=== PATIENT | female | born 1960 | race Hispanic/Latino ===

== ENCOUNTER 2023-05-06 11:07 | Inpatient (IN) | payer OTHER ==
[2023-05-06] MEDS ORDERED: ONDANSETRON 4 MG/2 ML VIAL ONE ×2 (11:55→18:51)
[2023-05-06] MEDS ORDERED: NA CHLORIDE 0.9% 1,000 ML ONE ×2 (11:55→18:52)
[2023-05-06 12:11] LABS: Absolute Lymphocytes (CBC) 0.5 K/uL (0.7-4.9); Hematocrit 44.1 % (36.0-45.0); MCV 88.5 fL (80-100); MPV 7.5 fL (7.6-11.3); Platelets 340 thou/uL (152-406); RBC Red Blood Cell Count 4.98 M/uL (3.86-4.86)
[2023-05-06] MEDS ORDERED: HYDROMORPHONE HCL 1 MG/ML INJ ONE (12:16)
--- NOTE | 2023-05-06 12:19 | RAD REPORT ---
EXAM DESCRIPTION: Zuri Single View05/06/2023 12:05 pm CLINICAL HISTORY: Sepsis COMPARISON: 2016 FINDINGS: Lung bases are mildly hazy Upper lobes appear clear. Heart is normal size IMPRESSION: Lung bases are mildly hazy probably secondary to overlying soft tissue. As infiltrate ca n have this appearance PA and lateral chest series recommended
[2023-05-06 12:23] LABS: Protime INR 1.05
[2023-05-06 12:33] LABS: SARS-CoV-2 Antigen Rapid Res Negative (Negative)
[2023-05-06 12:37] LABS: Albumin 3.5 g/dL (3.4-5.0); Bilirubin Total 0.7 mg/dL (0.2-1.0); Protein, Total 7.3 g/dL (6.4-8.2)
[2023-05-06 12:39] LABS: Potassium 3.8 mEq/L (3.5-5.1)
[2023-05-06 13:01] LABS: Troponin High Sensitivity 4.3 pg/mL (<58.9)
[2023-05-06 13:07] LABS: Blood Morphology Comment NOT SEEN (NOT SEEN); Platelet Estimate ADEQ; White Blood Cell Scan OK (OK)
--- NOTE | 2023-05-06 13:49 | ER ---
Nurse's Notes [facility] Name: Connie Webber Age: 63 yrs Sex: Female : 1960 Arrival Date: 05/06/2023 Time: 11:07 Bed 5 Private MD: Diagnosis: Dehydration, sepsis, influenza B Presentation: 05/06 11:28 Chief complaint: Patient states: i have been vomiting all night and this morning. The kd3 pain started yesterday and has been getting worse since then. It starters in the lower abdomen and then goes up into the upper abdominal pain and moves around the left side. Coronavirus screen: Vaccine status: Patient reports receiving the 2nd dose of the covid vaccine. Ebola Screen: No symptoms or risks identified at this time. Initial Sepsis Screen: Does the patient meet any 2 criteria? RR > 20 per min. HR > 90 bpm. Yes Does the patient have a suspected source of infection?. Risk Assessment: Do you want to hurt yourself or someone else? Patient reports no desire to harm self or others. Onset of symptoms was May 06, 2023. 11:28 Method Of Arrival: Wheelchair kd3 11:28 Acuity: SARAH 3 kd3 Triage Assessment: 11:32 General: Appears uncomfortable, Behavior is calm, cooperative. Pain: Complains of pain kd3 in abdomen. GI: Abdomen is obese. Historical: - Allergies: 11:31 PENICILLINS; kd3 - Home Meds: 11:31 Metoprolol Tartrate Oral [Active]; kd3 - PMHx: 11:31 breast cancer; Hypertensive disorder; kd3 - PSHx: 11:31 Cholecystectomy; kd3 - Immunization history:: Adult Immunizations up to date. - Social history:: Smoking status: Patient denies any tobacco usage or history of. Screenin:36 [facility] ED Fall Risk Assessment (Adult) History of falling in the last 3 months, ph including since admission No falls in past 3 months (0 pts) Score/Fall Risk Level 0 - 2 = Low Risk Oriented to surroundings, Maintained a safe environment, Hourly rounding (assess needs \T\ fall precautionary measures) done, Used ambulatory aids as needed (educated on \T\ assisted with). Abuse screen: Denies threats or abuse. Denies injuries from another. Nutritional screening: No deficits noted. Tuberculosis screening: No symptoms or risk factors identified. Assessment: 11:38 Reassessment: code sepsis called overhead. ph 12:38 Reassessment: Patient appears in no apparent distress at this time. No changes from kc6 previously documented assessment. Patient and/or family updated on plan of care and expected duration. Pain level reassessed. Patient is alert, oriented x 3, equal unlabored respirations, skin warm/dry/pink. 13:42 Reassessment: phlebotomy at bedside unable to obtain blood cultures at this time as pt kc6 is a very difficult stick. Dr. Ceron notified. 13:48 Reassessment: Patient appears in no apparent distress at this time. No changes from kc6 previously documented assessment. Patient and/or family updated on plan of care and expected duration. Pain level reassessed. Patient is alert, oriented x 3, equal unlabored respirations, skin warm/dry/pink. 14:38 Reassessment: Patient appears in no apparent distress at this time. No changes from kc6 previously documented assessment. Patient and/or family updated on plan of care and expected duration. Pain level reassessed. Patient is alert, oriented x 3, equal unlabored respirations, skin warm/dry/pink. please see [facility] for further charting. 19:25 General: Appears comfortable, Behavior is calm, cooperative. Pain: Complains of pain in ha1 abdomen Pain does not radiate. Pain currently is 3 out of 10 on a pain scale. Neuro: Level of Consciousness is awake, alert, obeys commands, Oriented to person, place, time, situation. Cardiovascular: Patient's skin is warm and dry. Respiratory: Airway is patent Respiratory effort is even, unlabored, Respiratory pattern is regular, symmetrical. GI: Abdomen is round non-distended, Bowel sounds present X 4 quads. Abd is soft and non tender X 4 quads. 20:25 Reassessment: Patient and/or family updated on plan of care and expected duration. Pain ha1 level reassessed. Patient is alert, oriented x 3, equal unlabored respirations, skin warm/dry/pink. 20:30 Reassessment: attempted to give report. ha1 21:00 Reassessment: attempted to give report. ha1 21:16 Reassessment: report given to KOJO Gao. ha1 22:00 Reassessment: Patient and/or family updated on plan of care and expected duration. Pain ha1 level reassessed. Patient is alert, oriented x 3, equal unlabored respirations, skin warm/dry/pink. Vital Signs: 11:26 Pulse 123; Resp 21; Temp 99.3(O); Pulse Ox 97% on R/A; Weight 90.72 kg; Height 5 ft. 3 kd3 in. ; Pain 10/10; 11:30 BP 96 / 81; kd3 14:35 BP 136 / 85; Pulse 114; Resp 22; Pulse Ox 98% ; ph 15:21 BP 124 / 73; Pulse 114; Resp 20 S; Pulse Ox 100% on R/A; kc6 19:30 BP 123 / 72; Pulse 110; Resp 14 S; Pulse Ox 96% on R/A; ha1 20:30 BP 124 / 98; Pulse 108; Resp 14 S; Pulse Ox 96% on R/A; ha1 21:40 BP 102 / 54; Pulse 110; Resp 18 S; Pulse Ox 98% on R/A; ha1 11:26 Body Mass Index 35.43 (90.72 kg, 160.02 cm) kd3 11:26 Pain Scale: Adult kd3 ED Course: 11:13 Patient arrived in ED. mr 11:15 Ruiz Ceron MD is Attending Physician. sp3 11:26 Arm band placed on right wrist. kd3 11:30 Triage completed. kd3 11:35 Berenice José RN is Primary Nurse. ph 11:37 Patient has correct armband on for positive identification. Bed in low position. Call ph light in reach. Side rails up X2. 12:05 Inserted saline lock: 22 gauge in right hand, using aseptic technique. Blood collected. kc6 Patient maintains SpO2 saturation greater than 95% on room air. 12:07 Chest Single View XRAY In Process Unspecified. EDMS 12:46 Radiology exam delayed due to IV insertion attempt and/or patient not having ls3 appropriate IV at this time. 13:48 Nilo Amos MD is Hospitalizing Provider. sp3 13:57 Abdomen In Process Unspecified. EDMS 18:46 Radiology exam delayed due to IV insertion attempt and/or patient not having nj appropriate IV at this time. 19:00 Report given to Laura Erazo RN \T\ Shweta Arevalo RN. kc6 19:47 Primary Nurse role handed off by Berenice José RN 20:00 Radiology exam delayed due to IV insertion attempt and/or patient not having nj appropriate IV at this time. 20:36 Radiology exam delayed due to IV insertion attempt and/or patient not having nj appropriate IV at this time. 21:13 Radiology exam delayed due to IV insertion attempt and/or patient not having nj appropriate IV at this time. 22:29 No provider procedures requiring assistance completed. Patient admitted, IV remains in ha1 place. 22:30 Provided Education on: need for admit . ha1 Administered Medications: 11:57 Drug: NS 0.9% IV (30 ml/kg) 30 ml/kg IV at bolus once; Sepsis Protocol Route: IV; Rate: kc6 bolus; Site: right hand; 11:57 Drug: Ondansetron IVP 4 mg IVP once; over 2 minutes Route: IVP; Site: right hand; kc6 15:22 Follow up: Response: No adverse reaction; Nausea is decreased; Vomiting decreased kc6 12:05 Drug: HYDROmorphone IVP 1 mg IVP once Route: IVP; Site: right hand; kc6 15:22 Follow up: Response: No adverse reaction; Pain is decreased; RASS: Alert and Calm (0) kc6 Medication: 11:37 VIS not applicable for this client. ph Outcome: 13:49 Decision to Hospitalize by Provider. sp3 22:29 Admitted to Tele accompanied by tech, via stretcher, room 415, with chart, Report 1 called to KOJO Gao 22:29 Condition: stable 22:29 Discharge instructions given to patient, Instructed on the need for admit, Demonstrated understanding of instructions, 22:30 Patient left the ED. [facility] [place] Signatures: Dispatcher [employer] EDIL Florinda Metzger, Reg Reg mr Berenice José, RN Holden Gonzalez ph, Lynzie 3 Jie Laura Ruiz Ceron MD MD sp3 Angie Ventura RN RN kd3 Laura Erazo RN RN ha1 Tierney Milian RN RN kc6 Corrections: (The following items were deleted from the chart) 19:13 14:38 Reassessment: Patient appears in no apparent distress at this time. No changes kc6 from previously documented assessment. Patient and/or family updated on plan of care and expected duration. Pain level reassessed. Patient is alert, oriented x 3, equal unlabored respirations, skin warm/dry/pink. kc6 20:33 19:30 BP 124 / 98; Pulse 108bpm; Resp 14bpm; Spontaneous; Pulse Ox 96% RA; ha1 ha1
--- NOTE | 2023-05-06 13:49 | EDPHYS ---
Physician Documentation [facility] Name: Connie Webber Age: 63 yrs Sex: Female : 1960 Arrival Date: 05/06/2023 Time: 11:07 Bed 5 Private MD: ED Physician Ruiz Ceron HPI: 05/06 12:15 63-year-old female with a history of breast cancer status post bilateral mastectomy, sp3 hypertension, gastritis now presents to the ED with chief complaint diffuse abdominal pain for several days. She also states she has had emesis yesterday evening with 3-4 episodes since then without blood or mucus. She denies lower abdominal pain she denies fever, chest pain, shortness of breath, back pain, URI symptoms, syncope, near syncope, known sick contacts, travel history, weight loss, or any other signs or symptoms on ROS at this time. No significant abdominal surgery history noted.. Historical: - Allergies: 11:31 PENICILLINS; kd3 - Home Meds: 11:31 Metoprolol Tartrate Oral [Active]; kd3 - PMHx: 11:31 breast cancer; Hypertensive disorder; kd3 - PSHx: 11:31 Cholecystectomy; kd3 - Immunization history:: Adult Immunizations up to date. - Social history:: Smoking status: Patient denies any tobacco usage or history of. ROS: 12:18 Constitutional: Negative for fever, chills, and weight loss, Eyes: Negative for injury, sp3 pain, redness, and discharge, ENT: Negative for injury, pain, and discharge, Neck: Negative for injury, pain, and swelling, Cardiovascular: Negative for chest pain, palpitations, and edema, Respiratory: Negative for shortness of breath, cough, wheezing, and pleuritic chest pain, Back: Negative for injury and pain, MS/Extremity: Negative for injury and deformity, Skin: Negative for injury, rash, and discoloration, Neuro: Negative for headache, weakness, numbness, tingling, and seizure, Psych: Negative for depression, anxiety, suicide ideation, homicidal ideation, and hallucinations, Allergy/Immunology: Negative for hives, rash, and allergies, Endocrine: Negative for neck swelling, polydipsia, polyuria, polyphagia, and marked weight changes, Hematologic/Lymphatic: Negative for swollen nodes, abnormal bleeding, and unusual bruising, 12:18 All other systems are negative, Exam: 12:18 Constitutional: This is a well developed, well nourished patient who is awake, alert, sp3 and in no acute distress. Head/Face: Normocephalic, atraumatic. Eyes: Pupils equal round and reactive to light, extra-ocular motions intact. Lids and lashes normal. Conjunctiva and sclera are non-icteric and not injected. Cornea within normal limits. Periorbital areas with no swelling, redness, or edema. ENT: Nares patent. No nasal discharge, no septal abnormalities noted. External auditory canals are clear. Oropharynx with no redness, swelling, or masses, exudates, or evidence of obstruction, uvula midline. Mucous membranes moist. Neck: Trachea midline, no thyromegaly or masses palpated, and no cervical lymphadenopathy. Supple, full range of motion without nuchal rigidity, or vertebral point tenderness. No Meningismus. Chest/axilla: Normal chest wall appearance and motion. Nontender with no deformity. No lesions are appreciated. Respiratory: Lungs have equal breath sounds bilaterally, clear to auscultation and percussion. No rales, rhonchi or wheezes noted. No increased work of breathing, no retractions or nasal flaring. Back: No spinal tenderness. No costovertebral tenderness. Full range of motion. Skin: Warm, dry with normal turgor. Normal color with no rashes, no lesions, and no evidence of cellulitis. MS/ Extremity: Pulses equal, no cyanosis. Neurovascular intact. Full, normal range of motion. Neuro: Awake and alert, GCS 15, oriented to person, place, time, and situation. Cranial nerves II-XII grossly intact. Motor strength 5/5 in all extremities. Sensory grossly intact. Cerebellar exam normal. Normal gait. Psych: Awake, alert, with orientation to person, place and time. Behavior, mood, and affect are within normal limits. 12:18 Cardiovascular: Rate: tachycardic, 12:18 ECG was reviewed by the Attending Physician. EKG demonstrates sinus tachycardia at 117 bpm with normal intervals, S wave in lead I isolated Q wave in lead III and nonspecific diffuse ST/T changes without evidence of acute ischemia. Vital Signs: 11:26 Pulse 123; Resp 21; Temp 99.3(O); Pulse Ox 97% on R/A; Weight 90.72 kg; Height 5 ft. 3 kd3 in. ; Pain 10/10; 11:30 BP 96 / 81; kd3 14:35 BP 136 / 85; Pulse 114; Resp 22; Pulse Ox 98% ; ph 15:21 BP 124 / 73; Pulse 114; Resp 20 S; Pulse Ox 100% on R/A; kc6 19:30 BP 123 / 72; Pulse 110; Resp 14 S; Pulse Ox 96% on R/A; ha1 20:30 BP 124 / 98; Pulse 108; Resp 14 S; Pulse Ox 96% on R/A; ha1 21:40 BP 102 / 54; Pulse 110; Resp 18 S; Pulse Ox 98% on R/A; ha1 11:26 Body Mass Index 35.43 (90.72 kg, 160.02 cm) kd3 11:26 Pain Scale: Adult kd3 MDM: 11:38 Patient medically screened. sp3 12:21 Data reviewed: vital signs, nurses notes, lab test result(s), EKG, radiologic studies. sp3 ED course: 63-year-old female with prior cancer history now with epigastric pain, abdominal pain, vomiting and abnormal EKG. Although EKG is not traditional S1 every 3 T3 in terms of magnitude of the QRS, her past medical history puts her at a moderate risk at minimum for pulmonary embolism. Differential includes gastroenteritis, viral syndrome, acute coronary syndrome, pulmonary embolism, recurrence of cancer, among others. I am not highly suspicious for aortic pathology including aneurysm or dissection, mesenteric ischemia, pathology, LOADER TECHNICIAN pathology or other critical process. Work-up will include CT scan of the chest PE protocol with runoffs to the abdomen and pelvis, laboratory values, EKG, 30 mL/kg IV fluid bolus and symptomatic nausea and pain control. Disposition pending work-up and patient course.. 11 11:39 Order name: Blood Culture Adult (2) sp3 05/06 11:39 Order name: CBC with Diff; Complete Time: 13:23 sp3 05/06 11:39 Order name: CMP; Complete Time: 13:04 sp3 05/06 11:39 Order name: Lactate w/ 2H reflex if indic.; Complete Time: 13:04 sp3 05/06 11:39 Order name: Protime (+inr); Complete Time: 13:04 sp3 05/06 11:39 Order name: Ptt, Activated; Complete Time: 13:04 sp3 05/06 11:39 Order name: Urinalysis w/ reflexes sp3 05/06 11:39 Order name: SARS RAPID; Complete Time: 13:04 sp3 05/06 11:39 Order name: Flu; Complete Time: 13:04 sp3 05/06 12:24 Order name: Troponin High Sensitivity; Complete Time: 13:04 sp3 05/06 12:24 Order name: Lipase; Complete Time: 13:04 sp3 05/06 13:07 Order name: CBC Smear Scan; Complete Time: 13:23 EDMS 05/06 15:13 Order name: T4 Free EDMS 05/06 15:13 Order name: Thyroid Stimulating Hormone EDMS 05/06 15:13 Order name: Urinalysis w/ reflexes EDMS 05/06 15:13 Order name: CBC with Automated Diff EDMS 05/06 15:13 Order name: CBC with Automated Diff EDMS 05/06 15:13 Order name: CBC with Automated Diff EDMS 05/06 15:13 Order name: CBC with Automated Diff EDMS 05/06 15:13 Order name: Comprehensive Metabolic Panel EDMS 05/06 15:13 Order name: Comprehensive Metabolic Panel EDMS 05/06 15:13 Order name: Comprehensive Metabolic Panel EDMS 05/06 15:13 Order name: Comprehensive Metabolic Panel EDMS 05/06 15:13 Order name: Lipid Profile EDMS 05/06 15:13 Order name: Lipid Profile EDMS 05/06 15:13 Order name: Magnesium EDMS 05/06 15:13 Order name: Magnesium EDMS 05/06 15:13 Order name: Magnesium EDMS 05/06 15:13 Order name: Magnesium EDMS 05/06 15:13 Order name: Phosphorus EDMS 05/06 15:13 Order name: Phosphorus EDMS 05/06 15:13 Order name: Phosphorus EDMS 05/06 15:13 Order name: Phosphorus EDMS 05/06 15:15 Order name: Urinalysis w/ reflexes EDMS 05/06 15:32 Order name: Lactate Sepsis 2 HR Follow-up EDMS 05/06 11:39 Order name: Chest Single View XRAY; Complete Time: 13:04 sp3 05/06 12:21 Order name: CT Chest For PE Angio sp3 05/06 13:49 Order name: Abdomen EDMS 05/06 11:39 Order name: EKG; Complete Time: 11:39 sp3 05/06 11:39 Order name: Accucheck; Complete Time: 12:02 sp3 05/06 11:39 Order name: Cardiac monitoring; Complete Time: 12:12 sp3 05/06 11:39 Order name: EKG - Nurse/Tech; Complete Time: 12:12 sp3 05/06 11:39 Order name: IV Saline Lock - Large Bore; Complete Time: 12:02 sp3 05/06 11:39 Order name: Labs collected and sent; Complete Time: 12:02 sp3 05/06 11:39 Order name: O2 Per Protocol; Complete Time: 11:57 sp3 05/06 11:39 Order name: O2 Sat Monitoring; Complete Time: 11:57 sp3 05/06 11:39 Order name: Vital Signs; Complete Time: 11:57 sp3 Administered Medications: 11:57 Drug: NS 0.9% IV (30 ml/kg) 30 ml/kg IV at bolus once; Sepsis Protocol Route: IV; Rate: kc6 bolus; Site: right hand; 11:57 Drug: Ondansetron IVP 4 mg IVP once; over 2 minutes Route: IVP; Site: right hand; kc6 15:22 Follow up: Response: No adverse reaction; Nausea is decreased; Vomiting decreased kc6 12:05 Drug: HYDROmorphone IVP 1 mg IVP once Route: IVP; Site: right hand; kc6 15:22 Follow up: Response: No adverse reaction; Pain is decreased; RASS: Alert and Calm (0) kc6 Disposition Summary: 05/06/23 13:49 Hospitalization Ordered Notes: Hospitalization Status: Inpatient Admission sp3 Provider: Nilo Amos sp3 [facility] sp3 Condition: Stable sp3 Problem: new sp3 Symptoms: have worsened sp3 Bed/Room Type: Standard sp3 Room Assignment: 415(05/06/23 19:28) cg Diagnosis - Dehydration, sepsis, influenza B sp3 Forms: - Medication Reconciliation Form sp3 - SBAR form sp3 - Leadership Thank You Letter sp3 Signatures: Dispatcher [employer] EDGA Bandar Zhu, PIER HAND HELPER-C PIER HAND HELPER-Cla1 Aziza Teresa, RN RN cg Ruiz Ceron MD MD sp3 Angie Ventura RN RN kd3 Tierney Milian RN RN kc6 Corrections: (The following items were deleted from the chart) 13:49 11:40 Abdomen Pelvis W Con+CT.RAD.BRZ ordered. EDMS EDMS 19:28 13:49 sp3 cg
--- NOTE | 2023-05-06 14:39 | RAD REPORT ---
EXAM DESCRIPTION: CT - Abdomen Pelvis Wo Contrast - 05/06/2023 1:55 pm CLINICAL HISTORY: ABD PAIN COMPARISON: No comparisons TECHNIQUE: Thin cut axial CT imaging of the abdomen and pelvis was performed without IV contrast. Mu ltiplanar reformats were generated and reviewed. All CT scans are performed using dose optimization technique as appropriate and may include automated exposure control or mA/KV adjustment according to patient size. FINDINGS: Moderate sliding hiatal hernia. No suspicious findings in the lung bases. The liver shows diffuse parenchymal hypoattenuation suggesting steatosis. Spleen, adrenal glands, and pancreas show no suspicious findings. Gallbladder was surgically removed. Symmetric renal contour, without suspicious parenchymal findings within limits of noncontrast techniq ue. No evidence of radiopaque calculi or hydroureteronephrosis. Mildly prominent proximal jejunal small bowel loops with short-segment air-fluid levels and progressi ve tapering towards nondistended central abdominal small bowel. Appendix is unremarkable. No bowel wa ll thickening. No free air, free fluid or inflammatory stranding. No hernia, mass or bulky lymphadeno jessie. The urinary bladder is without significant finding. No suspicious bony findings. IMPRESSION: Mildly prominent proximal jejunal small bowel loops with short-segment air-fluid levels. No evidence of obstruction. Findings suggest early ileus or enteritis. Moderate sliding hiatal hernia. Diffuse hepatic steatosis.
[2023-05-06] MEDS ORDERED: ACETAMINOPHEN 500 MG TAB PO PRN (15:07)
[2023-05-06] MEDS ORDERED: ALBUTEROL 2.5 MG/3 ML NEB SOL NEB PRN (15:07)
--- NOTE | 2023-05-06 15:24 | P.HP ---
Certification for Inpatient With expected LOS: <2 Midnights Patient will require the following post-hospital care: None Practitioner: I am a practitioner with admitting privileges, knowledge of patient current condition, hospital course, and medical plan of care. Services: Services provided to patient in accordance with Admission requirements found in Title 42 Section 412.3 of the Code of Federal Regulations Patient History Date of Service: 05/06/23 Reason for admission: Abdominal pain, vomiting History of Present Illness: Ms. Ling 63-year-old female with a history of breast cancer status post bilateral mastectomy, hypertension, gastritis presented to the ER with the chief complaints of diffuse abdominal pain for several days. She reports that her pain got worse last night, she also vomited 3-4 times in the evening patient denies chest pain, shortness of breath, chest discomfort. Patient denies fever, chills upper respiratory symptoms. ED course Vital signs blood pressure 96/81, pulse 123, breathing 21, temperature 99.3, pulse ox 97%, on room air. EKG showing sinus tachycardia. Laboratory findings significant for elevated lactic acid 3.8. CBC and electrolytes are nonsignificant. CT abdomen shows mildly prominent proximal jejunal small bowel loops with short segment air-filled levels. No evidence of obstruction, findings suggest early ileus or enteritis. Patient reports abdominal pain 5/10 now. Admitting the patient with a diagnosis of lactic acidosis, sepsis, and dehydration. Allergies No Known Allergies Allergy (Unverified 05/06/23 15:21) Home medications list reviewed: Yes - Past Medical/Surgical History Diabetic: No -: Breast cancer post bilateral mastectomy 2019 -: Hypertension -: Gastritis -: Bilateral mastectomy 2019 Psychosocial/ Personal History: Patient lives with her family - Social History Smoking Status: Former smoker Alcohol use: Yes CD- Drugs: No Caffeine use: Yes Place of Residence: Home Review of Systems 10-point ROS is otherwise unremarkable Physical Examination - Physical Exam General: Alert, Oriented x3 HEENT: Atraumatic, Normocephalic, PERRLA Neck: Supple, 2+ carotid pulse no bruit Respiratory: Clear to auscultation bilaterally, Normal air movement Cardiovascular: No edema, Normal pulses, Normal S1 S2 Capillary refill: <2 Seconds Gastrointestinal: Normal bowel sounds, Hypoactive, Soft and benign, Distended Musculoskeletal: No clubbing, No swelling, No contractures Integumentary: No rashes, No breakdown, No significant lesion Neurological: Normal speech, Normal tone, Sensation intact - Studies Laboratory Data (last 24 hrs) 05/06/23 05/06/23 05/06/23 11:58 11:58 11:58 WBC Hgb Hct Plt Count PT 11.5 INR 1.05 APTT 27.8 Sodium 136 Potassium 3.8 BUN 17 Creatinine 0.88 Glucose 190 H Total Bilirubin 0.7 AST 44 H ALT 47 Alkaline Phosphatase 131 H Lipase 56 05/06/23 11:58 WBC 8.80 Hgb 15.1 H Hct 44.1 Plt Count 340 PT INR APTT Sodium Potassium BUN Creatinine Glucose Total Bilirubin AST ALT Alkaline Phosphatase Lipase Microbiology Data (last 24 hrs): 05/06/23 11:58 Nasopharnyx Influenza Type A Antigen Screen - Final 05/06/23 11:58 Nasopharnyx Influenza Type B Antigen Screen - Final Assessment and Plan - Problems (Diagnosis) (1) Gastritis Current Visit: Yes Status: Chronic Plan: Chronic worsening complaining of epigastric abdominal pain for few days got worse last night, reports of nausea vomiting x3 episodes last night Admitting the patient IV hydration PPI Pain management IV antibiotic Metrogyl and levofloxacin We will continue to monitor CT scan abdomen 05/06/2023 reviewed Qualifiers: Gastritis type: other gastritis Chronicity: chronic (2) Nausea & vomiting Current Visit: Yes Status: Acute Plan: Acute, reports 3 episodes vomiting last night Zofran as needed IV hydration Continue to monitor Qualifiers: Vomiting type: projectile vomiting Qualified Code(s): R11.12 - Projectile vomiting (3) Hypertension Current Visit: Yes Status: Acute Plan: Chronic controlled on metoprolol We will monitor the blood pressure Qualifiers: Hypertension type: primary hypertension Qualified Code(s): I10 - Essential (primary) hypertension (4) Sepsis Current Visit: Yes Status: Acute Plan: Acute, patient came in with abdominal pain mostly epigastric for several days got worse last night Patient meet SIRS criteria as patient's heart rate is 1 1 8/min temperature 99.3 lactic acid 3.8 IV hydration started patient denies shortness of breath or chest discomfort Patient's blood pressure on the lower 96 We will continue to closely monitor vital signs Trend lactic acid IV antibiotics metronidazole and levofloxacin Qualifiers: Sepsis type: sepsis due to unspecified organism Sepsis acute organ dysfunction status: without acute organ dysfunction Qualified Code(s): A41.9 - Sepsis, unspecified organism (5) Dehydration Current Visit: Yes Status: Acute Plan: Acute, abdominal pain nausea vomiting Patient received NS 500 mL IV bolus in the ER IV hydration started We will continue to monitor the patient Discharge Plan: Home Plan to discharge in: 48 Hours - Advance Directives Does patient have a Living Will: No Does patient have a Durable POA for Healthcare: No - Code Status/Comfort Care Code Status Assessed: Yes (Full code) Code Status: Full Code Critical Care: No Time Spent Managing Pts Care (In Minutes): 55 (Minutes)
[2023-05-06] MEDS ORDERED: SODIUM CHLORIDE 0.9% 10ML INJ IV PRN (15:50)
[2023-05-06] MEDS: METRONIDAZOLE 500mg IVPB 500 MG/100 ML BAG IV SCH ×2 (16:00→23:15)
[2023-05-06] MEDS: ENOXAPARIN 40 MG/0.4 ML SQ SCH (16:00)
[2023-05-06] MEDS: Levofloxacin 750mg IV 750 MG/150 ML BAG IV SCH (16:00)
[2023-05-06] MEDS: NA CHLORIDE 0.9% 1,000 ML IV SCH ×2 (16:00→23:15)
[2023-05-06] MEDS ORDERED: ENOXAPARIN 40 MG/0.4 ML SQ ONE (18:51)
[2023-05-06] MEDS ORDERED: MORPHINE 2 MG/ML SYR ONE (18:51)
[2023-05-06] MEDS ORDERED: Levofloxacin 750mg IV 750 MG/150 ML BAG IV ONE (18:52)
[2023-05-06] MEDS ORDERED: METRONIDAZOLE 500mg IVPB 500 MG/100 ML BAG IV ONE (18:52)
[2023-05-06 19:10] LABS: Specific Gravity 1.025 (1.005-1.030); Urine Bilirubin NEGATIVE (Negative); Urine Blood Negative (Negative); Urine Clarity Clear (Clear); Urine Color Light-Yellow (Yellow); Urine Glucose TRACE (Negative); Urine Protein NEGATIVE (Negative); Urine Urobilinogen Normal (Normal)
[2023-05-06] MEDS: MORPHINE 2 MG/ML SYR IV PRN ×2 (19:22→23:09)
[2023-05-06] MEDS: ONDANSETRON 4 MG/2 ML VIAL IV PRN (19:23)
[2023-05-06 20:40] LABS: Thyroid Stimulating Hormone 1.07 uIU/mL (0.358-3.740)
[2023-05-06] MEDS: PANTOPRAZOLE 40 MG INJ IVP SCH (23:13)
[2023-05-07 00:31] VITALS: BMI 35.4
[2023-05-07] MEDS: ONDANSETRON 4 MG/2 ML VIAL IV PRN (00:35)
[2023-05-07] MEDS: NA CHLORIDE 0.9% 1,000 ML IV SCH ×2 (02:00→15:50)
--- NOTE | 2023-05-07 06:44 | P.PN ---
Subjective Date of Service: 05/07/23 Chief Complaint: Abdominal pain, vomiting Subjective: No C/O voiced pain controlled with prn analgesics, Review of Systems 10-point ROS is otherwise unremarkable Physical Examination - Vital Signs Temperature: 97.2 F Blood Pressure: 110/68 Pulse: 106 Respirations: 18 Pulse Ox (%): 97 - Physical Exam General: Alert, In no apparent distress, Oriented x3, Obese HEENT: Atraumatic, Normocephalic, PERRLA Neck: Supple, 2+ carotid pulse no bruit Respiratory: Clear to auscultation bilaterally, Normal air movement Cardiovascular: No edema, Normal pulses, Regular rate/rhythm Capillary refill: <2 Seconds Gastrointestinal: Tenderness (lower abdominal tenderness, nausea) Musculoskeletal: No clubbing, No swelling Integumentary: No rashes, No breakdown Neurological: Normal speech, Normal strength at 5/5 x4 extr - Studies Laboratory Data (last 24 hrs) 05/06/23 05/06/23 05/06/23 11:58 11:58 11:58 WBC Hgb Hct Plt Count PT 11.5 INR 1.05 APTT 27.8 Sodium 136 Potassium 3.8 BUN 17 Creatinine 0.88 Glucose 190 H Total Bilirubin 0.7 AST 44 H ALT 47 Alkaline Phosphatase 131 H Lipase 56 05/06/23 11:58 WBC 8.80 Hgb 15.1 H Hct 44.1 Plt Count 340 PT INR APTT Sodium Potassium BUN Creatinine Glucose Total Bilirubin AST ALT Alkaline Phosphatase Lipase Microbiology Data (last 24 hrs): 05/06/23 11:58 Nasopharnyx Influenza Type A Antigen Screen - Final 05/06/23 11:58 Nasopharnyx Influenza Type B Antigen Screen - Final Assessment And Plan - Plan Assessment plan Sepsis secondary to enteritis" versus ileus acute IV Flagyl, Levaquin, CT abdomen shows mildly prominent proximal jejunal small bowel loops with short segment air-filled levels. No evidence of obstruction, findings suggest early ileus or enteritis. Patient reports abdominal pain 5/10 now. Abdominal pain with nausea vomiting acute GI consult, n.p.o., as needed analgesics, antiemetics Transaminitis likely secondary to steatosis History of abdominal hernia Essential hypertension Resume appropriate home meds Full code DVT Lovenox Diet n.p.o. Discharge Plan: Home Plan to discharge in: 48 Hours - Code Status/Comfort Care Code Status: Full Code Physician Review: Patient Assessed, Agree with Above Assessment and Plan Critical Care: No Time Spent Managing PTS Care (In Minutes): 35
[2023-05-07] MEDS: PANTOPRAZOLE 40 MG INJ IVP SCH ×2 (09:00→20:23)
[2023-05-07] MEDS ORDERED: ENOXAPARIN 40 MG/0.4 ML SQ SCH (09:00)
[2023-05-07] MEDS: ENOXAPARIN 40 MG/0.4 ML SQ SCH (09:00)
[2023-05-07] MEDS: HYDROMORPHONE HCL 1 MG/ML INJ IV PRN ×2 (09:22→20:23)
[2023-05-07] MEDS: METRONIDAZOLE 500mg IVPB 500 MG/100 ML BAG IV SCH ×2 (09:23→15:50)
[2023-05-07 11:44] LABS: Absolute Lymphocytes (CBC) 0.8 K/uL (0.7-4.9); Hematocrit 36.7 % (36.0-45.0); Lymphocytes % 20.6 % (15.3-44.8); MCV 89.9 fL (80-100); MPV 7.6 fL (7.6-11.3); Platelets 289 thou/uL (152-406); RBC Red Blood Cell Count 4.08 M/uL (3.86-4.86)
[2023-05-07 11:48] LABS: Protime INR 2.45
[2023-05-07 12:09] LABS: Albumin 2.9 g/dL (3.4-5.0); Bilirubin Direct 0.1 mg/dL (0-0.2); Bilirubin Indirect, Calculated 0.3 mg/dL (0.2-0.8); Bilirubin Total 0.4 mg/dL (0.2-1.0); Phosphorus 3.3 mg/dL (2.5-4.9); Protein, Total 6.1 g/dL (6.4-8.2)
[2023-05-07 12:11] LABS: Magnesium 2.2 mg/dL (1.6-2.4); Potassium 3.8 mEq/L (3.5-5.1)
--- NOTE | 2023-05-07 13:57 | RAD REPORT ---
EXAM DESCRIPTION: CT - Chest For Pe Angio - 05/07/2023 1:17 pm CLINICAL HISTORY: cancer pt; epigastric pain COMPARISON: No comparisons TECHNIQUE: Thin axial CT images of the chest were obtained following administration of 100 mL mL Iso tatyana 370 IV contrast. Multiplanar reconstructions, and maximum intensity projection reconstructions we re generated and reviewed. Exam utilizes a protocol for optimal evaluation of pulmonary arterial tree . All CT scans are performed using dose optimization technique as appropriate and may include automated exposure control or mA/KV adjustment according to patient size. FINDINGS: Pulmonary arteries are normal. No emboli or other suspicious finding. No acute or signific ant aorta findings. No mass or infiltrate in the lung parenchyma. No pleural thickening or pleural effusion. No pneumotho rax. No abnormal mediastinal or hilar masses or lymphadenopathy seen. No chest wall mass or abnormal axill iary lymphadenopathy. Moderate hiatal hernia. Diffuse hepatic parenchymal hypoattenuation suggesting steatosis. Bilateral b reast implants in place. IMPRESSION: No evidence of acute central pulmonary emboli. No other acute findings in the chest. Moderate hiatal hernia. Diffuse hepatic parenchymal hypoattenuation suggesting steatosis.
[2023-05-07] MEDS ORDERED: POTASSIUM 25 MEQ EFFERV TAB PO ONE (15:05)
[2023-05-07] MEDS: Levofloxacin 750mg IV 750 MG/150 ML BAG IV SCH (15:49)
[2023-05-08] MEDS: METRONIDAZOLE 500mg IVPB 500 MG/100 ML BAG IV SCH ×3 (00:41→16:02)
[2023-05-08] MEDS: NA CHLORIDE 0.9% 1,000 ML IV SCH ×4 (04:20→18:00)
[2023-05-08] MEDS: HYDROMORPHONE HCL 1 MG/ML INJ IV PRN ×2 (06:25→13:39)
[2023-05-08] MEDS: PANTOPRAZOLE 40 MG INJ IVP SCH ×2 (07:52→20:21)
[2023-05-08] MEDS: ENOXAPARIN 40 MG/0.4 ML SQ SCH (07:53)
[2023-05-08 08:30] LABS: Absolute Lymphocytes (CBC) 1.5 K/uL (0.7-4.9); Hematocrit 34.8 % (36.0-45.0); Lymphocytes % 30.5 % (15.3-44.8); MCV 88.9 fL (80-100); MPV 7.9 fL (7.6-11.3); Platelets 287 thou/uL (152-406); RBC Red Blood Cell Count 3.91 M/uL (3.86-4.86)
[2023-05-08 08:36] LABS: Protime INR 1.15
[2023-05-08 08:38] LABS: Albumin 2.9 g/dL (3.4-5.0); Bilirubin Total 0.3 mg/dL (0.2-1.0); Magnesium 2.2 mg/dL (1.6-2.4); Phosphorus 2.9 mg/dL (2.5-4.9); Potassium 3.4 mEq/L (3.5-5.1)
--- NOTE | 2023-05-08 09:11 | RAD REPORT ---
EXAM DESCRIPTION: RAD - Abdomen 1 View (KUB) - 05/08/2023 8:28 am CLINICAL HISTORY: evaluate ileus COMPARISON: Abdomen Pelvis Wo Contrast dated 05/06/2023 TECHNIQUE: Single AP view of the abdomen. FINDINGS: Nonobstructive bowel gas pattern. No air-fluid levels, free air, or pneumatosis. No suspic ious calcifications. No significant bony abnormality. IMPRESSION: Negative two view abdomen examination.
[2023-05-08] MEDS ORDERED: POTASSIUM CL SA 10 MEQ TAB PO ONE ×2 (09:49→17:20)
--- NOTE | 2023-05-08 10:02 | P.DS ---
Admission Date: 05/06/23 Discharge Date: 05/09/23 Disposition: ROUTINE DISCHARGE Discharge Condition: GOOD Reason for Admission: Abdominal pain, vomiting - Problems (1) Abdominal pain Current Visit: Yes Status: Acute (2) Nausea & vomiting Current Visit: Yes Status: Acute Qualifiers: Vomiting type: unspecified Qualified Code(s): R11.2 - Nausea with vomiting, unspecified Hospital Course: 63 year old female presented to the emergency room with Abdominal pain, nausea, vomiting, she was disanosed with possible early bowel ostruction, vs enteritis. She was treated with prn analgesics, Iv antibioitics, keep NPO until until bowel sounds improved. Plan to advance diet today. Discharge home when tolerating PO diet. Follow up with PCP in 7-10 days. Return to ER for worsening of symptoms. Vital Signs/Physical Exam: Temp Pulse Resp BP Pulse Ox 97.6 F 97 H 16 144/71 H 97 05/08/23 08:00 05/08/23 08:00 05/08/23 08:00 05/08/23 08:00 05/08/23 08:00 General: Alert, In no apparent distress, Oriented x3, Obese HEENT: Atraumatic, Normocephalic Neck: Supple, 2+ carotid pulse no bruit Respiratory: Clear to auscultation bilaterally, Normal air movement Cardiovascular: No edema, Normal pulses, Regular rate/rhythm Capillary refill: <2 Seconds Gastrointestinal: Normal bowel sounds, Soft and benign Musculoskeletal: No clubbing, No swelling Integumentary: No rashes, No breakdown Neurological: Normal speech, Normal strength at 5/5 x4 extr Laboratory Data at Discharge: WBC 5.10 thou/uL (4.3-10.9) 05/08/23 01:05 Hgb 11.7 g/dL (12.0-15.0) L 05/08/23 01:05 Hct 34.8 % (36.0-45.0) L 05/08/23 01:05 Plt Count 287 thou/uL (152-406) 05/08/23 01:05 PT 12.7 SECONDS (9.5-12.5) H 05/08/23 01:05 INR 1.15 05/08/23 01:05 APTT 27.8 SECONDS (24.3-36.9) 05/06/23 11:58 Sodium 141 mEq/L (136-145) 05/08/23 01:05 Potassium 3.4 mEq/L (3.5-5.1) L 05/08/23 01:05 BUN 6 mg/dL (7-18) L 05/08/23 01:05 Creatinine 0.66 mg/dL (0.55-1.02) 05/08/23 01:05 Glucose 81 mg/dL (74-106) 05/08/23 01:05 Phosphorus 2.9 mg/dL (2.5-4.9) 05/08/23 01:05 Magnesium 2.2 mg/dL (1.6-2.4) 05/08/23 01:05 Total Bilirubin 0.3 mg/dL (0.2-1.0) 05/08/23 01:05 AST 36 U/L (15-37) 05/08/23 01:05 ALT 39 U/L (13-56) 05/08/23 01:05 Alkaline Phosphatase 87 U/L (45-117) 05/08/23 01:05 Triglycerides 107 mg/dL (<150) 05/07/23 11:27 Cholesterol 161 mg/dL (<200) 05/07/23 11:27 HDL Cholesterol 42 mg/dL (40-60) 05/07/23 11:27 Cholesterol/HDL Ratio 3.83 05/07/23 11:27 Lipase 61 U/L (13-75) 05/07/23 11:27 Home Medications: Biotin 5,000 mcg PO DAILY 05/06/23 Cholecalciferol (Vitamin D3) [Vitamin D3] 125 mcg PO DAILY 05/06/23 Dexlansoprazole [Dexlansoprazole Dr] 60 mg PO DAILY 05/06/23 Fluoxetine HCl 20 mg PO DAILY 05/06/23 Folic Acid 800mcg 800 mcg PO DAILY 05/06/23 Letrozole [Femara*] 2.5 mg PO DAILY 05/06/23 Metoprolol Tartrate 50 mg PO DAILY 05/06/23 Rivaroxaban [Xarelto] 20 mg PO DAILY 05/06/23 Turmeric Root Extract [Turmeric] 1,000 mg PO DAILY 05/06/23 Vitamin B12 1,000 mcg PO DAILY 05/06/23 Zinc 50mg 50 mg PO DAILY 05/06/23 buPROPion HCL [Wellbutrin Xl] 150 mg PO DAILY 05/06/23 Physician Discharge Instructions: Discharge home, follow up with PCP in 7-10 days Diet clear liq diet diet, advance as tolerated activity was tolerated return to the emergency room for wosening of symptoms Take stool softeners as needed over the counter for constipation Diet: AHA Activity: Ad tata Followup: NONE,NONE [Primary Care Provider] - Time spent managing pt's care (in minutes): 50
[2023-05-08] MEDS ORDERED: POTASSIUM 25 MEQ EFFERV TAB PO ONE ×2 (10:24→10:52)
[2023-05-08] MEDS: ONDANSETRON 4 MG/2 ML VIAL IV PRN (12:42)
--- NOTE | 2023-05-08 14:14 | EKG ---
Test Date: 2023-05-06 Test Time: 13:15:30 Finishing Machine Operator: NGUYỄN MEASUREMENT RESULTS: Intervals: Rate: 117 NM: 176 QRSD: 82 QT: 328 QTc: 457 [place]: P: 35 NM: 176 QRS: 1 T: -1 INTERPRETIVE STATEMENTS: Sinus tachycardia Inferior infarct, age undetermined Anterior infarct, age undetermined Abnormal ECG Compared to ECG 12/22/2015 01:16:54 No significant changes Electronically Signed On 05-08-23 14:08:32 HAND I CUTTER by Amadeo Leong
[2023-05-08] MEDS: Levofloxacin 750mg IV 750 MG/150 ML BAG IV SCH (16:02)
--- NOTE | 2023-05-08 16:27 | P.PN ---
Subjective Date of Service: 05/08/23 Chief Complaint: Abdominal pain, vomiting Subjective: Improving pain controlled with prn analgesics, tolerating advance diet. reports passing flatus, reports nausea from PO potassium Review of Systems 10-point ROS is otherwise unremarkable Physical Examination - Vital Signs Temperature: 97.2 F Blood Pressure: 137/79 Pulse: 88 Respirations: 16 Pulse Ox (%): 94 - Physical Exam General: Alert, In no apparent distress, Oriented x3, Obese HEENT: Atraumatic, Normocephalic Neck: Supple, 2+ carotid pulse no bruit Respiratory: Clear to auscultation bilaterally, Normal air movement Cardiovascular: No edema, Normal pulses Capillary refill: <2 Seconds Gastrointestinal: Normal bowel sounds, Tenderness (mild lower abdominal tenderness) Musculoskeletal: No clubbing, No swelling Integumentary: No rashes, No breakdown Neurological: Normal speech, Normal strength at 5/5 x4 extr Assessment And Plan - Current Problems (Diagnosis) (1) Abdominal pain Current Visit: Yes Status: Acute (2) Nausea & vomiting Current Visit: Yes Status: Acute Qualifiers: Vomiting type: unspecified Qualified Code(s): R11.2 - Nausea with vomiting, unspecified - Plan Assessment plan Sepsis secondary to enteritis" versus ileus acute IV Flagyl, Levaquin, CT abdomen shows mildly prominent proximal jejunal small bowel loops with short segment air-filled levels. No evidence of obstruction, findings suggest early ileus or enteritis. advancing diet, reports passing flatus Abdominal pain with nausea vomiting acute GI consult, n.p.o., as needed analgesics, antiemetics Transaminitis likely secondary to steatosis History of abdominal hernia Essential hypertension Resume appropriate home meds Full code DVT Lovenox Diet full liquid. Physician Review: Patient Assessed, Agree with Above Assessment and Plan
--- NOTE | 2023-05-08 19:52 | CON ---
Date of Consultation: 05/08/2023 Reason For Consultation: Midepigastric greater than generalized abdominal pain with nausea, vomiting . History Of Present Illness: The patient came to the hospital with 24 hours of severe abdominal pain, began in the epigastrium radiating to generalized abdomen associated with nausea and vomiting. CT s can revealed inflammation of the jejunum with short segment of air from lungs in that region. The pa josiah denies any abnormal food, eating out, parties, and just all of a sudden pain happene d. States that she had been eating her food from home it appears, not going out. In the emergency r oom, she appeared dehydrated. There was a question in the emergency room of whether that she may hav e influenza B, but I do not have any verification of that from the chart. Past Medical History: Significant for hypertension; gastritis; breast cancer, status post bilateral mastectomy in 2019; and laparoscopic cholecystectomy in the past. Social History: , 4 children. No tobacco. She has occasional alcohol. Family History: Father of end-stage liver disease and he was not a heavy drinker. The etiology of his liver failure was not the daughter, the patient, or her brother who is present as well. Mother, history of hypertension . Review of Systems: The patient had midepigastric and diffuse abdominal pain with nausea, vomiting. She denies any sullivan e in bowel habits, diarrhea, constipation, melena, hematochezia, coffee-ground, hematuria, dysuria, p olydipsia, chest pain, shortness of breath, seizure, syncope, muscle aches, joint aches, backaches, d epression, anxiety. Physical Examination: Vital Signs: Patient is 5 feet 3 inches, 200 pounds, BMI of 35.4 kg/sq m. Temperature 97.3 degrees Fahrenheit, pulse 88, respirations 16, blood pressure 137/79, O2 saturation 94%. General: She is an obese female lying in bed, in no acute distress. HEENT: Normocephalic, atraumatic. Anicteric. Pupils equal, round, and reactive to light. Extraocu lar movements are intact. Oropharynx clear. Neck: Supple. No masses. Respirations: Clear to auscultation bilaterally. Cardiac: Regular rate and rhythm. No gallops or rubs. Abdomen: Positive bowel sounds. Generalized tenderness. No peritoneal or Liz sign. No rebound. Extremities: No clubbing, cyanosis, or edema. 2+ pulses. Neuro: Alert and oriented x3. Grossly nonfocal. 5/5 motor strength. Sensation is intact to light touch. Laboratory Data: The patient had a white count 8.8 on admission, today is 5.1; hemoglobin 11.7; emely tocrit 34.8; MCV 89; platelet count 287, polys of 57% down from 90% on admission, lymphocytes 31%, mo nocytes 11%, eosinophils 1%. Coagulation; patient had a PT of 12.7, INR of 1.15, PTT of 27.8. The p atient has a sodium 141, potassium 3.4, chloride 110, bicarb 26, BUN of 6, creatinine of 0.7, lactic acid of 1.19, calcium of 8.3, phosphorus 2.9, magnesium 2.2, total bilirubin 0.3, AST of 36, ALT of 3 9, alkaline phosphatase 87, total protein 6.0, albumin 2.9, triglycerides 107, cholesterol 161, LDL o f 98, HDL 42, lipase 61. TSH of 1.07. Free T4 1.23. UA just shows some trace glucose, otherwise ne gative. COVID-[address] scan of the abdomen and pelvis revealed mildly prominent jejunum, small bowel loops with short segment of air-fluid levels. Moderate hiatal hernia. Diffuse hepatic steatosis and cholecystectomy changes in the past. Impression: 1.Gastroenteritis versus enteritis with diffuse midepigastric, diffuse abdominal pain with nausea, v omiting. No change in bowel habits. No melena, hematochezia, diarrhea, constipation, fevers, chills , night sweats. CT showed mildly prominent jejunal and small bowel loops with short-segment air-flui d levels. Moderate hiatal hernia. Diffuse hepatic steatosis. Cholecystectomy changes noted. Patie nt is improving here in the hospital with IV fluids, IV antibiotics. States that she feels much bett er, especially now after receiving the pain injection before my interview with the patient. 2.Dehydration. 3.Possible influenza did not confirm by my chart review. 4.History of hypertension; gastritis; breast cancer, status post bilateral mastectomy in 2019; and l aparoscopic cholecystectomy. Recommendation: 1.Continue IV fluids, IV antibiotics. 2.Consider Questran. 3.Full liquids to GI soft diet as tolerated. 4.Continue p.r.n. pain medications and antiemetics. 5.Patient to follow up in GI clinic in 3 weeks. ARSALAN/MEGHANN Voice ID: [id number] Report ID: [id number]
[2023-05-09] MEDS: METRONIDAZOLE 500mg IVPB 500 MG/100 ML BAG IV SCH ×3 (00:15→16:16)
[2023-05-09] MEDS: HYDROMORPHONE HCL 1 MG/ML INJ IV PRN ×3 (02:26→19:31)
[2023-05-09] MEDS: NA CHLORIDE 0.9% 1,000 ML IV SCH ×2 (04:00→14:03)
[2023-05-09 06:46] LABS: Absolute Lymphocytes (CBC) 1.2 K/uL (0.7-4.9); Lymphocytes % 27.2 % (15.3-44.8); MCV 88.4 fL (80-100); MPV 7.2 fL (7.6-11.3); Platelets 296 thou/uL (152-406); RBC Red Blood Cell Count 3.96 M/uL (3.86-4.86)
[2023-05-09] MEDS ORDERED: POTASSIUM 25 MEQ EFFERV TAB PO ONE (06:56)
[2023-05-09 07:04] LABS: Bilirubin Total 0.5 mg/dL (0.2-1.0); Phosphorus 3.8 mg/dL (2.5-4.9); Potassium 3.6 mEq/L (3.5-5.1); Protein, Total 5.9 g/dL (6.4-8.2)
[2023-05-09] MEDS: PANTOPRAZOLE 40 MG INJ IVP SCH ×2 (07:49→20:21)
[2023-05-09] MEDS: ENOXAPARIN 40 MG/0.4 ML SQ SCH (07:50)
[2023-05-09] MEDS ORDERED: POTASSIUM CL SA 10 MEQ TAB PO ONE (08:23)
--- NOTE | 2023-05-09 09:05 | P.PN ---
Subjective Date of Service: 05/09/23 Chief Complaint: Abdominal pain, vomiting Subjective: Improving (Less pain today. Tolerating po diet.) Review of Systems 10-point ROS is otherwise unremarkable Gastrointestinal: Abdominal Pain Physical Examination - Vital Signs Temperature: 97.3 F Blood Pressure: 117/71 Pulse: 92 Respirations: 105 Pulse Ox (%): 96 - Physical Exam General: Alert, In no apparent distress, Oriented x3, Cooperative HEENT: Atraumatic, Normocephalic, PERRLA, EOMI Neck: Supple Respiratory: Normal air movement Cardiovascular: Normal pulses Gastrointestinal: No rebound, No guarding, Tenderness (Mild) Neurological: Normal speech, Normal strength at 5/5 x4 extr Assessment And Plan - Current Problems (Diagnosis) (1) Enteritis Current Visit: Yes Status: Acute Comment: Improved. (2) Epigastric abdominal pain Current Visit: Yes Status: Acute (3) Generalized abdominal pain Current Visit: Yes Status: Acute (4) Abnormal CT of the abdomen Current Visit: Yes Status: Acute (5) Nausea & vomiting Current Visit: Yes Status: Acute Qualifiers: Vomiting type: unspecified Qualified Code(s): R11.2 - Nausea with vomiting, unspecified - Plan REC: 1) continue IV antibiotics 2) continue po diet 3) discharge soon (today or tomorrow) Physician Review: Patient Assessed, Agree with Above Assessment and Plan
[2023-05-09] MEDS: ONDANSETRON 4 MG/2 ML VIAL IV PRN ×3 (09:17→23:53)
--- NOTE | 2023-05-09 09:50 | P.PN ---
Subjective Date of Service: 05/09/23 Primary Care Provider: Dr. Bourne Chief Complaint: Abdominal pain, vomiting Subjective: Other (She reports nausea with soft diet, no reported vomiting today) reports nausea with soft diet, no vomiting Review of Systems 10-point ROS is otherwise unremarkable Physical Examination - Vital Signs Temperature: 97.3 F Blood Pressure: 117/71 Pulse: 92 Respirations: 105 Pulse Ox (%): 96 - Physical Exam General: Alert, In no apparent distress, Oriented x3 HEENT: Atraumatic, Normocephalic Neck: Supple, 2+ carotid pulse no bruit Respiratory: Clear to auscultation bilaterally, Normal air movement Cardiovascular: No edema, Normal pulses Capillary refill: <2 Seconds Gastrointestinal: Tenderness (LUQ tenderness, + nausea, no vomiting) Musculoskeletal: No clubbing, No swelling Integumentary: No rashes, No breakdown Neurological: Normal speech, Normal strength at 5/5 x4 extr Assessment And Plan - Plan Assessment plan Sepsis secondary to enteritis" versus ileus acute IV Flagyl, Levaquin, CT abdomen shows mildly prominent proximal jejunal small bowel loops with short segment air-filled levels. No evidence of obstruction, findings suggest early ileus or enteritis. advancing diet, reports passing flatus KUB FINDINGS: Nonobstructive bowel gas pattern. No air-fluid levels, free air, or pneumatosis. No suspicious calcifications.No significant bony abnormality. IMPRESSION: Negative two view abdomen examination Abdominal pain with nausea vomiting acute GI consult, n.p.o., as needed analgesics, antiemetics Transaminitis likely secondary to steatosis History of abdominal hernia Essential hypertension Resume appropriate home meds Full code DVT Lovenox Diet clear liquid. - Code Status/Comfort Care Code Status: Full Code Physician Review: Patient Assessed, Agree with Above Assessment and Plan Critical Care: No Time Spent Managing PTS Care (In Minutes): 35
[2023-05-09] MEDS: Levofloxacin 750mg IV 750 MG/150 ML BAG IV SCH (16:17)
[2023-05-10] MEDS: METRONIDAZOLE 500mg IVPB 500 MG/100 ML BAG IV SCH ×2 (00:33→09:21)
[2023-05-10] MEDS ORDERED: METOCLOPRAMIDE 10 MG/2mL INJ IV SCH (01:12)
[2023-05-10] MEDS: HYDROMORPHONE HCL 1 MG/ML INJ IV PRN (01:21)
[2023-05-10] MEDS: NA CHLORIDE 0.9% 1,000 ML IV SCH ×2 (03:58→10:00)
[2023-05-10 04:21] LABS: Absolute Lymphocytes (CBC) 1.6 K/uL (0.7-4.9); Hematocrit 37.1 % (36.0-45.0); Lymphocytes % 27.7 % (15.3-44.8); MCV 88.8 fL (80-100); MPV 7.4 fL (7.6-11.3); Platelets 345 thou/uL (152-406); RBC Red Blood Cell Count 4.18 M/uL (3.86-4.86)
[2023-05-10 04:38] LABS: Albumin 2.9 g/dL (3.4-5.0); Bilirubin Total 0.4 mg/dL (0.2-1.0); Potassium 3.8 mEq/L (3.5-5.1); Protein, Total 6.1 g/dL (6.4-8.2)
[2023-05-10 05:42] LABS: Hepatitis B Core IgM Nonreactive (Nonreactive); Hepatitis B surface AG Interp. Nonreactive (Nonreactive); Hepatitis C Virus Ab Nonreactive (Nonreactive)
[2023-05-10] MEDS ORDERED: POTASSIUM CL SA 10 MEQ TAB PO ONE (09:00)
--- NOTE | 2023-05-10 09:11 | P.DS ---
Admission Date: 05/06/23 Discharge Date: 05/10/23 Primary Care Provider: Dr. Bourne Reason for Admission: Abdominal pain, vomiting - Problems (1) Gastritis Current Visit: Yes Status: Chronic Qualifiers: Gastritis type: other gastritis Chronicity: chronic (2) Nausea & vomiting Current Visit: Yes Status: Acute Qualifiers: Vomiting type: unspecified Qualified Code(s): R11.2 - Nausea with vomiting, unspecified (3) Hypertension Current Visit: Yes Status: Acute Qualifiers: Hypertension type: primary hypertension Qualified Code(s): I10 - Essential (primary) hypertension (4) Sepsis Current Visit: Yes Status: Acute Qualifiers: Sepsis type: sepsis due to unspecified organism Sepsis acute organ dysfunction status: without acute organ dysfunction Qualified Code(s): A41.9 - Sepsis, unspecified organism (5) Dehydration Current Visit: Yes Status: Acute Brief History of Present Illness: Ms. Ling 63-year-old female with a history of breast cancer status post bilateral mastectomy, hypertension, gastritis presented to the ER with the chief complaints of diffuse abdominal pain for several days. She reports that her pain got worse last night, she also vomited 3-4 times in the evening patient denies chest pain, shortness of breath, chest discomfort. Patient denies fever, chills upper respiratory symptoms. ED course Vital signs blood pressure 96/81, pulse 123, breathing 21, temperature 99.3, pulse ox 97%, on room air. EKG showing sinus tachycardia. Laboratory findings significant for elevated lactic acid 3.8. CBC and electrolytes are nonsignificant. CT abdomen shows mildly prominent proximal jejunal small bowel loops with short segment air-filled levels. No evidence of obstruction, findings suggest early ileus or enteritis. Patient reports abdominal pain 5/10 now. Admitting the patient with a diagnosis of lactic acidosis, sepsis, and dehydration. Hospital Course: 63 year old female presented to the emergency room with nausea, vomiting, abdominal pain. On CT scan was diagnosed with enteritis. She was treated with IV Antibiotics, IV Flagyl, Levaquin, as need pain, nausea medications. Diet was slowly advanced to as tolerated. Additional abnormal labs elevated liver enzymes. AST ALT AST 200, ALT 156 alk phos 135 patient reported history of fatty liver. Hepatitis panel drawn prior to discharge. Patient will need to follow- up with Dr. Sivla after discharge. General: Alert, In no apparent distress, Oriented x3, Obese HEENT: Atraumatic, Normocephalic Neck: Supple, 2+ carotid pulse no bruit Respiratory: Clear to auscultation bilaterally, Normal air movement Cardiovascular: No edema, Normal pulses, Regular rate/rhythm Capillary refill: <2 Seconds Gastrointestinal: Normal bowel sounds, Soft and benign Musculoskeletal: No clubbing, No swelling Integumentary: No rashes, No breakdown Neurological: Normal speech, Normal strength at 5/5 x4 extr Discharge home, follow up with PCP in 7-10 days Diet clear liq diet diet, advance as tolerated activity was tolerated return to the emergency room for wosening of symptoms Take stool softeners as needed over the counter for constipation Vital Signs/Physical Exam: Temp Pulse Resp BP Pulse Ox 97.7 F 108 H 16 131/65 99 05/10/23 04:00 05/10/23 04:00 05/10/23 04:00 05/10/23 04:00 05/10/23 04:00 General: Alert, Oriented x3 HEENT: Atraumatic, Normocephalic Neck: Supple, 2+ carotid pulse no bruit Respiratory: Clear to auscultation bilaterally, Normal air movement Cardiovascular: No edema, Normal pulses Capillary refill: <2 Seconds Gastrointestinal: Normal bowel sounds, Soft and benign Musculoskeletal: No clubbing, No swelling Integumentary: No rashes, No breakdown Neurological: Normal speech, Normal tone, Normal affect Laboratory Data at Discharge: WBC 5.60 thou/uL (4.3-10.9) 05/10/23 04:08 Hgb 12.6 g/dL (12.0-15.0) 05/10/23 04:08 Hct 37.1 % (36.0-45.0) 05/10/23 04:08 Plt Count 345 thou/uL (152-406) 05/10/23 04:08 PT 12.7 SECONDS (9.5-12.5) H 05/08/23 01:05 INR 1.15 05/08/23 01:05 APTT 27.8 SECONDS (24.3-36.9) 05/06/23 11:58 Sodium 138 mEq/L (136-145) 05/10/23 04:08 Potassium 3.8 mEq/L (3.5-5.1) 05/10/23 04:08 BUN 4 mg/dL (7-18) L 05/10/23 04:08 Creatinine 0.75 mg/dL (0.55-1.02) 05/10/23 04:08 Glucose 126 mg/dL (74-106) H 05/10/23 04:08 Phosphorus 3.8 mg/dL (2.5-4.9) 05/09/23 06:31 Magnesium 2.0 mg/dL (1.6-2.4) 05/09/23 06:31 Total Bilirubin 0.4 mg/dL (0.2-1.0) 05/10/23 04:08 AST 179 U/L (15-37) H 05/10/23 04:08 ALT 165 U/L (13-56) H 05/10/23 04:08 Alkaline Phosphatase 137 U/L (45-117) H 05/10/23 04:08 Triglycerides 107 mg/dL (<150) 05/07/23 11:27 Cholesterol 161 mg/dL (<200) 05/07/23 11:27 HDL Cholesterol 42 mg/dL (40-60) 05/07/23 11:27 Cholesterol/HDL Ratio 3.83 05/07/23 11:27 Lipase 61 U/L (13-75) 05/07/23 11:27 Home Medications: Biotin 5,000 mcg PO DAILY 05/06/23 Cholecalciferol (Vitamin D3) [Vitamin D3] 125 mcg PO DAILY 05/06/23 Dexlansoprazole [Dexlansoprazole Dr] 60 mg PO DAILY 05/06/23 Fluoxetine HCl 20 mg PO DAILY 05/06/23 Folic Acid 800mcg 800 mcg PO DAILY 05/06/23 Letrozole [Femara*] 2.5 mg PO DAILY 05/06/23 Metoprolol Tartrate 50 mg PO DAILY 05/06/23 Rivaroxaban [Xarelto] 20 mg PO DAILY 05/06/23 Turmeric Root Extract [Turmeric] 1,000 mg PO DAILY 05/06/23 Vitamin B12 1,000 mcg PO DAILY 05/06/23 Zinc 50mg 50 mg PO DAILY 05/06/23 buPROPion HCL [Wellbutrin Xl] 150 mg PO DAILY 05/06/23 Physician Discharge Instructions: 63 year old female presented to the emergency room with nausea, vomiting, abdominal pain. On CT scan was diagnosed with enteritis. She was treated with IV Antibiotics, IV Flagyl, Levaquin, as need pain, nausea medications. Diet was slowly advanced to as tolerated. Additional abnormal labs elevated liver enzymes. AST ALT AST 200, ALT 156 alk phos 135 patient reported history of fatty liver. Hepatitis panel drawn prior to discharge. Patient will need to follow- up with Dr. Silva after discharge. General: Alert, In no apparent distress, Oriented x3, Obese HEENT: Atraumatic, Normocephalic Neck: Supple, 2+ carotid pulse no bruit Respiratory: Clear to auscultation bilaterally, Normal air movement Cardiovascular: No edema, Normal pulses, Regular rate/rhythm Capillary refill: <2 Seconds Gastrointestinal: Normal bowel sounds, Soft and benign Musculoskeletal: No clubbing, No swelling Integumentary: No rashes, No breakdown Neurological: Normal speech, Normal strength at 5/5 x4 extr Discharge home, follow up with PCP in 7-[address] Silva 2 to 4 weeks Diet clear liq diet diet, advance as tolerated activity was tolerated return to the emergency room for wosening of symptoms Take stool softeners as needed over the counter for constipation Diet: AHA Activity: Ad tata Followup: NONE,NONE [Primary Care Provider] - Tyrese Reece MD [ASSOCIATE-ACTIVE - CAN ADMIT] - Physician Review: Patient Assessed, Agree with Above Assessment and Plan Time spent managing pt's care (in minutes): 55 (minutes)
[2023-05-10] MEDS: PANTOPRAZOLE 40 MG INJ IVP SCH (09:20)
[2023-05-10] MEDS: ENOXAPARIN 40 MG/0.4 ML SQ SCH (09:20)
[2023-05-10 09:53] VITALS: O2SAT 96
[2023-05-10 10:12] VITALS: BP 137/86; TEMP 97.1
== END 2023-05-10 11:30 | disposition home or self-care (01) | DRG 872 ==
LOC: ER 11:07 → ERHOLD 15:04 → 4TH 19:35
PROVIDERS: ADMIT Internal Medicine Nephrology; ATTEND Hospitalist
DX: A41.9 Sepsis, unspecified organism (principal); E87.20 Acidosis, unspecified; I10 Essential (primary) hypertension; E88.89 Other specified metabolic disorders; E86.9 Volume depletion, unspecified; K76.0 Fatty (change of) liver, not elsewhere classified; K52.9 Noninfective gastroenteritis and colitis, unspecified; K44.9 Diaphragmatic hernia without obstruction or gangrene; R74.01 Elevation of levels of liver transaminase levels; Z88.0 Allergy status to penicillin; Z85.3 Personal history of malignant neoplasm of breast; Z90.49 Acquired absence of other specified parts of digestive tract; Z90.13 Acquired absence of bilateral breasts and nipples; Z79.01 Long term (current) use of anticoagulants; Z11.52 Encounter for screening for COVID-19; Z79.899 Other long term (current) drug therapy; Z87.891 Personal history of nicotine dependence
CPT/HCPCS: 36415; 71045; 71275; 74018; 74176; 80053; 80061; 80074; 81003; 82248; 83605; 83690; 83735; 84100; 84132; 84439; 84443; 84484; 85025; 85610; 85730; 87040; 87804; 87811; 93005; 96374; 96375; 99285; C9113; J1170; J1650; J2270; J2405; J2765; J7030; Q9967